=== PATIENT | female | born 1985 | race Caucasian/White ===

== ENCOUNTER → 2017-04-27 | Outpatient (REF) | payer OTHER ==
[~2017-04-27] MED LIST: BENA25TA4 PO; MOTR200T44 PO; PERCOCET PO
[2017-04-27 13:59] LABS: BASO # 0.1 K/mm3 (0.0-0.2); BASO % 0.5 % (0.0-1.0); EOS # 0.2 K/mm3 (0.0-0.50); EOS % 1.3 % (0.0-3.0); LARGE UNSTAINED CELL # 0.1 K/mm3 (0.0-0.4); LARGE UNSTAINED CELL % 1.2 % (0.0-4.0); LYMPH # 2.3 K/mm3 (1.5-4.5); LYMPH % 19.2 % (24.0-44.0); MEAN CORPUSCULAR HEMOGLOBIN 28.1 pg (27.0-33.0); MEAN CORPUSCULAR HGB CONC 32.6 g/dl (32.0-36.5); MONO # 0.7 K/mm3 (0.0-0.8); MONO % 6.3 % (0.0-5.0); NEUTROPHILS # 7.9 K/mm3 (1.8-7.7); NEUTROPHILS % 71.5 % (36.0-66.0); PLATELET COUNT, AUTOMATED 392 k/mm3 (150-450); WHITE BLOOD COUNT 11.1 K/mm3 (4.0-10.0)
[2017-04-27 14:07] LABS: ALBUMIN/GLOBULIN RATIO 1.18 (1.00-1.93); ALKALINE PHOSPHATASE 65 U/L (45-117); ALT/SGPT 23 U/L (12-78); ANION GAP 7 MEQ/L (8-16); AST/SGOT 15 U/L (15-37); BILIRUBIN,TOTAL 0.3 MG/DL (0.2-1.0); BLOOD UREA NITROGEN 9 MG/DL (7-18); CALCIUM LEVEL 9.7 MG/DL (8.5-10.1); CARBON DIOXIDE LEVEL 25 MEQ/L (21-32); CHLORIDE LEVEL 104 MEQ/L (98-107); CREATININE FOR GFR 0.62 MG/DL (0.55-1.02); GLOMERULAR FILTRATION RATE > 60.0 (>60); GLUCOSE, FASTING 89 MG/DL (70-105); POTASSIUM SERUM 4.4 MEQ/L (3.5-5.1); SODIUM LEVEL 136 MEQ/L (136-145); TOTAL PROTEIN 7.4 GM/DL (6.4-8.2); URIC ACID 5.2 MG/DL (2.6-6.0)
[2017-04-27 15:04] LABS: ERYTHROCYTE SEDIMENTATION RATE 9 mm/hr (0-20)
[2017-04-29 00:06] LABS: Lyme Disease IgG/IgM Antibodie <0.91 ISR (0.00-0.90); Lyme Disease IgM Ab Quantitati <0.80 index (0.00-0.79)
== END ==
LOC: M LABDRAW1 12:50
PROVIDERS: ATTEND Orthopaedic Surgery
DX: G56.01 Carpal tunnel syndrome, right upper limb (principal)

== ENCOUNTER 2018-04-01 10:38 | Day surgery (SDC) | payer OTHER ==
[~2018-04-01 10:38] MED LIST changes: -BENA25TA4 PO; +LIDOCAINE 2% MDV 20 ML VIAL As Ordered; -MOTR200T44 PO; -PERCOCET PO; +PROPOFOL 200 MG/20 ML VIAL As Ordered
[2018-04-01] MEDS: NS 1,000 ML IV (11:34)
[2018-04-01] MEDS ORDERED: PROPOFOL 200 MG/20 ML VIAL As Ordered ×4 (12:55→13:13)
== END 2018-04-01 13:59 | disposition home or self-care (01) ==
LOC: M OPP 10:38
DX: R19.7 Diarrhea, unspecified (principal); D12.0 Benign neoplasm of cecum; K64.8 Other hemorrhoids; K22.70 Barrett's esophagus without dysplasia; K21.0 Gastro-esophageal reflux disease with esophagitis; K29.70 Gastritis, unspecified, without bleeding; K29.80 Duodenitis without bleeding; R11.2 Nausea with vomiting, unspecified; M50.30 Other cervical disc degeneration, unspecified cervical region; F41.9 Anxiety disorder, unspecified; R51 Headache; E28.2 Polycystic ovarian syndrome; Z88.3 Allergy status to other anti-infective agents; Z91.048 Other nonmedicinal substance allergy status; Z88.5 Allergy status to narcotic agent; Z79.899 Other long term (current) drug therapy; Z80.0 Family history of malignant neoplasm of digestive organs; Z80.8 Family history of malignant neoplasm of other organs or systems
CPT/HCPCS: 45380

== ENCOUNTER 2018-06-14 12:14 | Day surgery (SDC) | payer OTHER ==
[~2018-06-14 12:14] MED LIST changes: +LIDOCAINE 2% INJ 100 MG/5 ML SDV (FOR ANES.) As Ordered; -LIDOCAINE 2% MDV 20 ML VIAL As Ordered; +fentaNYL 100 MCG/2 ML INJECTION (J3010) As Ordered
[2018-06-14] MEDS: NS 1,000 ML IV (12:30)
[2018-06-14] MEDS ORDERED: PROPOFOL 200 MG/20 ML VIAL As Ordered (13:24)
== END 2018-06-14 14:02 | disposition home or self-care (01) ==
LOC: M OPP 12:14
DX: K21.0 Gastro-esophageal reflux disease with esophagitis (principal); K29.70 Gastritis, unspecified, without bleeding; R12 Heartburn; R11.2 Nausea with vomiting, unspecified; K22.70 Barrett's esophagus without dysplasia; M54.2 Cervicalgia; M35.9 Systemic involvement of connective tissue, unspecified; F41.9 Anxiety disorder, unspecified; R51 Headache; E28.2 Polycystic ovarian syndrome; N80.9 Endometriosis, unspecified; Z89.421 Acquired absence of other right toe(s); Z88.3 Allergy status to other anti-infective agents; Z91.048 Other nonmedicinal substance allergy status; Z91.018 Allergy to other foods; Z79.84 Long term (current) use of oral hypoglycemic drugs; Z79.899 Other long term (current) drug therapy; Z80.0 Family history of malignant neoplasm of digestive organs; Z80.8 Family history of malignant neoplasm of other organs or systems
CPT/HCPCS: 43239

== ENCOUNTER → 2019-01-03 | Outpatient (REF) | payer OTHER ==
[~2019-01-03] MED LIST changes: +BENA25TA4 PO; +ETHY1TAB PO; +HYDR200T3 PO; -LIDOCAINE 2% INJ 100 MG/5 ML SDV (FOR ANES.) As Ordered; +MELA10TA4 PO; +METF10004 PO; +MOTR200T44 PO; +OMEP40CA2 PO; +PANT40TA3 PO; +PERCOCET PO; +PRED10TA2 PO; -PROPOFOL 200 MG/20 ML VIAL As Ordered; +RANI150T PO; +REST0.05 OU; +SERT-138 PO; +TOPI25TA10 PO; +TRAM50TA2 PO; +TYLE325T5 PO; +TYLE500T78 PO; -fentaNYL 100 MCG/2 ML INJECTION (J3010) As Ordered
== END ==
LOC: M LAB LCGH 11:11
DX: Z12.4 Encounter for screening for malignant neoplasm of cervix (principal)

== ENCOUNTER 2019-05-31 05:50 | Day surgery (SDC) | payer OTHER ==
[~2019-05-31] VITALS: Ht 167.6 cm; Wt 115.2 kg
[~2019-05-31 05:50] MED LIST changes: +MAXA10TA15 PO; +ZONI100C2 PO
[2019-05-31] MEDS ORDERED: LIDOCAINE 1% MDV 20ML VIAL SQ PRN (06:00)
[2019-05-31] MEDS ORDERED: LR 1,000 ML IV ONE (06:00)
[2019-05-31] MEDS ORDERED: dexameTHASONE 4 MG/ML 1ML VIAL (J1100) IV ONE (06:00)
[2019-05-31] MEDS ORDERED: IBUP80TA PO (06:37)
[2019-05-31 06:41] LABS: URINE PREG TEST NEGATIVE (NEGATIVE)
[2019-05-31] MEDS ORDERED: CIPRODEX OTIC SUSP 7.5ML As Ordered ONE (06:47)
[2019-05-31] MEDS ORDERED: PHENYLEPHRINE 0.5% NASAL SPRAY 15 ML As Ordered ONE (06:47)
[2019-05-31] MEDS ORDERED: SCOPOLAMINE 1MG TRANSDERMAL PATCH TOP ONE (07:00)
[2019-05-31] MEDS ORDERED: MIDAZOLAM INJ 2 MG/2 ML VIAL (J2250) As Ordered ONE (07:14)
[2019-05-31] MEDS ORDERED: fentaNYL 100 MCG/2 ML INJECTION (J3010) As Ordered ONE ×3 (07:14→08:22)
[2019-05-31] MEDS ORDERED: dexameTHASONE 4 MG/ML 1ML VIAL (J1100) As Ordered ONE (07:14)
[2019-05-31] MEDS ORDERED: LIDOCAINE 2% INJ 100 MG/5 ML SDV (FOR ANES.) As Ordered ONE (07:14)
[2019-05-31] MEDS ORDERED: PROPOFOL 200 MG/20 ML VIAL As Ordered ONE (07:14)
[2019-05-31] MEDS ORDERED: ONDANSETRON 4MG/2ML VIAL (J2405) As Ordered ONE (07:14)
[2019-05-31] MEDS ORDERED: SCOPOLAMINE 1MG TRANSDERMAL PATCH As Ordered ONE (07:15)
[2019-05-31] MEDS ORDERED: diphenhydrAMINE INJ 50MG/ML VIAL (J1200) As Ordered ONE (07:58)
[2019-05-31] MEDS ORDERED: oxyCODONE 5MG TAB As Ordered ONE (08:22)
[2019-05-31] MEDS: fentaNYL 100 MCG/2 ML INJECTION (J3010) IV PRN ×3 (08:25→08:35)
[2019-05-31] MEDS: oxyCODONE 5MG TAB PO PRN ×2 (08:25→09:00)
[2019-05-31] MEDS ORDERED: METOCLOPRAMIDE INJ 10MG/2ML VIAL (J2765) IV PRN (08:30)
[2019-05-31] MEDS ORDERED: ONDANSETRON 4MG/2ML VIAL (J2405) IV PRN (08:30)
[2019-05-31] MEDS ORDERED: LR 1,000 ML IV SCH ×2 (08:30)
[2019-05-31] MEDS ORDERED: IBUPROFEN 600 MG TAB As Ordered ONE (08:49)
[2019-05-31] MEDS ORDERED: IBUPROFEN 600 MG TAB PO ONE (09:00)
[2019-05-31 09:15] VITALS: BP 135/79
--- NOTE | 2019-05-31 14:39 | RO ---
DATE OF OPERATION: 05/31/2019 PREOPERATIVE DIAGNOSIS: Recurrent otitis media and adenoid hypertrophy. POSTOPERATIVE DIAGNOSIS: Recurrent otitis media and adenoid hypertrophy. PROCEDURE PERFORMED: Bilateral tympanostomy and adenoidectomy. SURGEON: Eliezer Mcclure MD PLANT PATHOLOGIST: ANESTHESIA: General. CLINICAL PREAMBLE: This 33-year-old woman presented to the office with history of recurrent otitis media. Nasal endoscopy revealed evidence of adenoid hypertrophy. Management options, including bilateral tympanostomy and adenoidectomy have been discussed. The patient understood and consented to the procedure. DESCRIPTION OF PROCEDURE: Operating room (OR) narration: Patient was identified in preoperative holding and brought to the operating room in stable condition. In supine position on the operating table, patient received general anesthesia followed by orotracheal intubation without incident. Patient was prepped and draped in the usual fashion for the procedure. The patient's head was turned to the left side to expose the right ear. Ear speculum was inserted and cerumen was debrided. The right tympanic membrane was visualized under binocular magnification under an operating microscope and was found to be intact and mildly retracted. Myringotomy incision was made over the anterior-inferior quadrant of tympanic membrane. The right middle ear cleft was then suctioned clear. A 7 mm straight shank tympanostomy tube was inserted. Ciprodex drops were instilled, and a cotton ball was used to occlude the ear canal. The same procedure was carried out to place the same type of tympanostomy tube to the left ear as well. The Yaya-Alexandro mouth gag was inserted and suspended. The red rubber catheter was inserted via the right naris to retract the soft palate. Using a mirror, the hypertrophic adenoid tissue was visualized. Using the Coblator wand set at 7 for Coblation and 3 for coagulation, the hypertrophic adenoid tissue was ablated. Hemostasis was achieved. At the end of the procedure, sponge and instrument counts were correct. No complication was encountered. Estimated blood loss was less than 10 mL. General anesthesia was reversed, and patient was extubated and brought to the recovery room in stable condition. edited: 06/08/2019 1000 tkf
== END 2019-05-31 09:46 | disposition home or self-care (01) ==
LOC: M SDC 05:50
PROVIDERS: ATTEND Otolaryngology
DX: H65.23 Chronic serous otitis media, bilateral (principal); J35.2 Hypertrophy of adenoids; F41.9 Anxiety disorder, unspecified; Z91.018 Allergy to other foods; Z79.84 Long term (current) use of oral hypoglycemic drugs; R51 Headache; E28.2 Polycystic ovarian syndrome; Z79.899 Other long term (current) drug therapy
CPT/HCPCS: 42831; 69436; 84703; J1100; J1200; J2250; J2405; J3010

== ENCOUNTER → 2020-08-28 | Outpatient (REF) | payer OTHER ==
[~2020-08-28] MED LIST changes: +BUSP15TA47 PO; +CETI10CA2 PO; +IBUP80TA PO; +METH8TAB4 PO; -OMEP40CA2 PO; +OMEP40CA97 PO; +PANT40TA29 PO; -PANT40TA3 PO; +PROP10TA56 PO; +SULF500T41 PO; +ZONI100C17 PO; -ZONI100C2 PO
== END ==
LOC: M LAB REF 09:51
PROVIDERS: ATTEND Internal Medicine Gastroenterology
DX: R19.7 Diarrhea, unspecified (principal)

== ENCOUNTER → 2020-08-28 | Outpatient (CLI) | payer OTHER | LOC: M LABSMTC 12:57 | PROVIDERS: ATTEND Anesthesiology | DX: Z01.812 Encounter for preprocedural laboratory examination (principal); Z20.828 Contact with and (suspected) exposure to other viral communicable diseases ==

== ENCOUNTER 2020-09-02 08:22 | Day surgery (SDC) | payer OTHER ==
[~2020-09-02] VITALS: Ht 167.6 cm; Wt 117.8 kg
[~2020-09-02 08:22] MED LIST changes: +NS 1,000 ML IV ONE
[2020-09-02] MEDS ORDERED: LIDOCAINE 2% 100MG/5ML SDV (FOR ANES.) As Ordered ONE (09:27)
[2020-09-02] MEDS ORDERED: propofoL 200 MG/20 ML VIAL As Ordered ONE ×2 (09:27→10:01)
[2020-09-02] MEDS ORDERED: fentaNYL 100 MCG/2 ML INJECTION (J3010) As Ordered ONE (09:28)
--- NOTE | 2020-09-02 10:01 | ROOR ---
Patient Name: Seb Clark Procedure Date: 09/02/2020 9:40 AM Date of : 1985 Age: 35 Room: [facility] Gender: Female Note Status: Finalized Procedure: Upper Endoscopy + Biopsies Indications: Heartburn, Exclusion of Pandya's esophagus Providers: David Uribe MD Referring MD: Liya Mccabe MD Requesting Provider: Medicines: Monitored Anesthesia Care Complications: No immediate complications. Procedure: Pre-Anesthesia Assessment: - The heart rate, respiratory rate, oxygen saturations, blood pressure, adequacy of pulmonary ventilation, and response to care were monitored throughout the procedure. The Endoscope was introduced through the mouth, and advanced to the second part of duodenum. The upper GI endoscopy was accomplished without difficulty. The patient tolerated the procedure well. Findings: The Z-line was regular and was found 40 cm from the incisors. Multiple biopsies were obtained with cold forceps for evaluation to rule out Pandya's Esophagus randomly at the gastroesophageal junction. No other significant abnormalities were identified in a careful examination of the stomach. Biopsies were taken with a cold forceps in the gastric antrum for Helicobacter pylori testing. The exam of the duodenum was otherwise normal. Biopsies for histology were taken with a cold forceps in the first portion of the duodenum for evaluation of celiac disease. The exam was otherwise without abnormality. Impression: - Z-line regular, 40 cm from the incisors. - The examination was otherwise normal. - Multiple biopsies were obtained at the gastroesophageal junction. - Biopsies were taken with a cold forceps for Helicobacter pylori testing. - Biopsies were taken with a cold forceps for evaluation of celiac disease. - The examination was otherwise normal. Recommendation: - Patient has a contact number available for emergencies. The signs and symptoms of potential delayed complications were discussed with the patient. Return to normal activities tomorrow. Written discharge instructions were provided to the patient. - High fiber diet. - Discharge patient to home. - Follow an antireflux regimen. - Continue present medications. - Await pathology results. - Telephone GI clinic for pathology results in 1 week. - Return to referring physician. - The findings and recommendations were discussed with the patient. Procedure Code(s): --- Professional --- 45436, Esophagogastroduodenoscopy, flexible, transoral; with biopsy, single or multiple Diagnosis Code(s): --- Professional --- R12, Heartburn CPT copyright 2019 [employer] [place] [employer]. All rights reserved. The codes documented in this report are preliminary and upon death surveys coder review may be revised to meet current compliance requirements. David Uribe MD David Uribe MD 09/02/2020 10:01:34 AM Electronically signed by David Uribe MD Number of Addenda: 0 Note Initiated On: 09/02/2020 9:40 AM Estimated Blood Loss: Estimated blood loss: none.
--- NOTE | 2020-09-02 10:18 | ROOR ---
Patient Name: Seb Clark Procedure Date: 09/02/2020 9:41 AM Date of : 1985 Age: 35 Room: [facility] Gender: Female Note Status: Finalized Procedure: Total Colonoscopy to Cecum + ileoscopy + Bx Indications: Clinically significant diarrhea of unexplained origin, Rectal bleeding Providers: David Uribe MD Referring MD: Liya Mccabe MD Requesting Provider: Medicines: Monitored Anesthesia Care Complications: No immediate complications. Procedure: Pre-Anesthesia Assessment: - The heart rate, respiratory rate, oxygen saturations, blood pressure, adequacy of pulmonary ventilation, and response to care were monitored throughout the procedure. The Colonoscope was introduced through the anus and advanced to the terminal ileum. The colonoscopy was performed without difficulty. The patient tolerated the procedure well. The quality of the bowel preparation was excellent. Findings: The perianal and digital rectal examinations were normal. Non-bleeding internal hemorrhoids were found during retroflexion. The hemorrhoids were small and Grade I (internal hemorrhoids that do not prolapse). No other significant abnormalities were identified in a careful examination of the remainder of the colon. Background biopsies were taken for histology with a cold forceps from the ascending colon, transverse colon, descending colon and rectosigmoid colon. These biopsy specimens were sent to Pathology. The terminal ileum appeared normal. The exam was otherwise without abnormality. Impression: - Non-bleeding internal hemorrhoids. - The examined portion of the ileum was normal. - The examination was otherwise normal. - Background biopsies were taken from the ascending colon, transverse colon, descending colon and rectosigmoid colon. - The exam was otherwise normal to the cecum. Recommendation: - Patient has a contact number available for emergencies. The signs and symptoms of potential delayed complications were discussed with the patient. Return to normal activities tomorrow. Written discharge instructions were provided to the patient. - High fiber diet. - Discharge patient to home. - Continue present medications. - Await pathology results. - Repeat colonoscopy at age 51 for screening purposes. - Return to referring physician. - The findings and recommendations were discussed with the patient. Procedure Code(s): --- Professional --- 71115, Colonoscopy, flexible; with biopsy, single or multiple Diagnosis Code(s): --- Professional --- K64.0, First degree hemorrhoids R19.7, Diarrhea, unspecified K62.5, Hemorrhage of anus and rectum CPT copyright 2019 [employer]. All rights reserved. The codes documented in this report are preliminary and upon net c developer review may be revised to meet current compliance requirements. David Uribe MD David Uribe MD 09/02/2020 10:17:49 AM Electronically signed by David Uribe MD Number of Addenda: 0 Note Initiated On: 09/02/2020 9:41 AM Estimated Blood Loss: Estimated blood loss: none.
[2020-09-02 10:44] VITALS: BP 136/76
== END 2020-09-02 10:48 | disposition home or self-care (01) ==
LOC: M OPP 08:22
PROVIDERS: ATTEND Internal Medicine Gastroenterology
DX: K62.5 Hemorrhage of anus and rectum (principal); K64.0 First degree hemorrhoids; R19.7 Diarrhea, unspecified; R12 Heartburn; K21.9 Gastro-esophageal reflux disease without esophagitis; E28.2 Polycystic ovarian syndrome; Z80.0 Family history of malignant neoplasm of digestive organs; M32.9 Systemic lupus erythematosus, unspecified; Z79.84 Long term (current) use of oral hypoglycemic drugs; Z79.899 Other long term (current) drug therapy; Z88.4 Allergy status to anesthetic agent; Z91.018 Allergy to other foods; Z91.048 Other nonmedicinal substance allergy status
CPT/HCPCS: 43239; 45380; 88305; J3010

== ENCOUNTER 2021-11-09 18:52 | Emergency (ER) | payer OTHER ==
[~2021-11-09] VITALS: Ht 167.6 cm; Wt 122.7 kg
[~2021-11-09 18:52] MED LIST changes: -NS 1,000 ML IV ONE; +OMEP40CA4 PO; -OMEP40CA97 PO
[2021-11-09] MEDS ORDERED: KETOROLAC 60MG 2ML VIAL IM ONE (19:55)
[2021-11-09] MEDS ORDERED: MORPHINE 4 MG/ML 1ML VIAL/SYRINGE (J2270) IV ONE ×2 (21:15→21:50)
[2021-11-09 21:32] LABS: BASO # 0.1 10^3/uL (0.0-0.2); BASO % 0.6 % (0.0-1.0); EOS # 0.1 10^3/uL (0.0-0.5); EOS % 1.2 % (0.0-3.0); HEMATOCRIT 41.8 % (36.0-47.0); HEMOGLOBIN 13.7 g/dl (12.0-15.5); LYMPH # 2.1 10^3/uL (1.5-5.0); LYMPH % 17.9 % (24.0-44.0); MEAN CORPUSCULAR HEMOGLOBIN 29.1 pg (27.0-33.0); MEAN CORPUSCULAR HGB CONC 32.8 g/dl (32.0-36.5); MEAN CORPUSCULAR VOLUME 88.7 fl (80.0-96.0); MONO % 8.4 % (2.0-8.0); NEUTROPHILS # 8.5 10^3/uL (1.5-8.5); NEUTROPHILS % 71.5 % (36.0-66.0); PLATELET COUNT, AUTOMATED 404 10^3/uL (150-450); RED BLOOD COUNT 4.71 10^6/uL (4.00-5.40); WHITE BLOOD COUNT 11.9 10^3/uL (4.0-10.0)
[2021-11-09 21:44] LABS: INR 0.9; PROTHROMBIN TIME 12.5 SECONDS (12.7-14.5)
[2021-11-09] MEDS ORDERED: NORCO, ANEXSIA 5/325MG TABLET (HYDROcodone/ACETAMINOPHEN) PO ONE (21:50)
[2021-11-09 21:54] LABS: BLOOD UREA NITROGEN 14 MG/DL (7-18); CALCIUM LEVEL 8.9 MG/DL (8.5-10.1); CARBON DIOXIDE LEVEL 23 MEQ/L (21-32); CHLORIDE LEVEL 109 MEQ/L (98-107); CREATININE FOR GFR 0.66 MG/DL (0.55-1.30); GLOMERULAR FILTRATION RATE > 60.0 (>60); GLUCOSE, FASTING 99 MG/DL (70-100); POTASSIUM SERUM 4.1 MEQ/L (3.5-5.1); SODIUM LEVEL 142 MEQ/L (136-145)
[2021-11-09 22:14] LABS: RSV AMPLIFICATION NEGATIVE (NEGATIVE)
[2021-11-09] MEDS ORDERED: HYDR-4571 PO (22:40)
[2021-11-09 22:53] VITALS: BP 160/91
== END 2021-11-09 22:58 | disposition home or self-care (01) ==
LOC: M ED 18:52 → EDBD 18:52 → M ED 22:58
DX: S82.841A Displaced bimalleolar fracture of right lower leg, initial encounter for closed fracture (principal); W00.0XXA Fall on same level due to ice and snow, initial encounter; M32.9 Systemic lupus erythematosus, unspecified; Z91.018 Allergy to other foods; Z91.048 Other nonmedicinal substance allergy status; Y92.009 Unspecified place in unspecified non-institutional (private) residence as the place of occurrence of the external cause; Y93.9 Activity, unspecified; Y99.9 Unspecified external cause status
CPT/HCPCS: 73590; 73610; 73620; 73700; 80048; 84702; 85025; 85610; 87631; 96372; 96374; 99284; J1885; J2270

== ENCOUNTER → 2021-11-11 | Outpatient (CLI) | payer OTHER ==
[~2021-11-11] MED LIST changes: +HYDR-4571 PO
== END ==
LOC: M SOG 11:41
PROVIDERS: ATTEND Orthopaedic Surgery
DX: S82.841A Displaced bimalleolar fracture of right lower leg, initial encounter for closed fracture (principal); X58.XXXA Exposure to other specified factors, initial encounter; Y92.89 Other specified places as the place of occurrence of the external cause; Y93.9 Activity, unspecified; Y99.9 Unspecified external cause status

== ENCOUNTER → 2021-11-12 | Outpatient (CLI) | payer OTHER | LOC: M LABSMTC 09:30 | PROVIDERS: ATTEND Anesthesiology | DX: Z01.812 Encounter for preprocedural laboratory examination (principal); Z20.822 Contact with and (suspected) exposure to COVID-19 ==

== ENCOUNTER → 2021-11-14 | Day surgery (SDC) | payer OTHER ==
[~2021-11-14] VITALS: Ht 167.6 cm; Wt 122.1 kg
[~2021-11-14] MED LIST changes: +ACET1TAB55 PO; +ACETAMINOPHEN 1000MG 100ML IV BTL (OFIRMEV) (J0131 PER 10MG) As Ordered ONE; +ACETAMINOPHEN TAB 650MG DOSE (2X325MG) PO SCH; +BUPIVACAINE HCL 0.25% 30ML VIAL As Ordered ONE; +ECOT81TA5 PO; +EPINEPHrine INJ 1 MG/ML 1ML AMP XX ONE; +HYDR-3713 PO; +LIDOCAINE 1% MDV 20ML VIAL XX ONE; +LIDOCAINE 2% 100MG/5ML SDV (FOR ANES.) As Ordered ONE; +LIDOCAINE W/EPINEPHRINE 1% 20ML VIAL As Ordered ONE; +LR 1,000 ML IV ONE; +LR 1,000 ML IV SCH; +METOCLOPRAMIDE INJ 10MG/2ML VIAL (J2765 PER 1) IV PRN; +MIDAZOLAM INJ 2MG/2ML VIAL (J2250 PER 1MG) As Ordered ONE; +MIDAZOLAM INJ 2MG/2ML VIAL (J2250 PER 1MG) IV PRN; +MORPHINE 4 MG/ML 1ML VIAL/SYRINGE (J2270) IV PRN; +ONDANSETRON 4MG/2ML VIAL As Ordered ONE; +ONDANSETRON 4MG/2ML VIAL IV PRN; +PERCOCET 5MG/325MG TAB PO PRN; +ROCURONIUM BROMIDE 50 MG/5 ML VIAL As Ordered ONE; +ROPIvacaine 0.5% 30ML INJECTION (J2795 PER 1MG) XX ONE; +SUGAMMADEX SODIUM 500 MG/5 ML VIAL (BRIDION) As Ordered ONE; +ceFAZolin SOD 2 GM in IV 1 EA IV ONE; +dexameTHASONE 10MG/1ML VIAL PRES.FREE (J1100 PER 1MG) XX ONE; +dexameTHASONE 4 MG/ML 1ML VIAL (J1100 PER 1MG) As Ordered ONE; +fentaNYL 100 MCG/2 ML INJECTION As Ordered ONE; +fentaNYL 100 MCG/2 ML INJECTION IV PRN; +fentaNYL 250 MCG/5 ML INJECTION As Ordered ONE; +oxyCODONE 5MG TAB PO PRN; +propofoL 200 MG/20 ML VIAL As Ordered ONE
[2021-11-14] MEDS: fentaNYL 100 MCG/2 ML INJECTION IV PRN ×2 (12:37→12:38)
[2021-11-14 16:55] VITALS: BP 148/85
== END | disposition home or self-care (01) ==
LOC: M SDC 10:58
PROVIDERS: ATTEND Orthopaedic Surgery
DX: S82.841A Displaced bimalleolar fracture of right lower leg, initial encounter for closed fracture (principal); W00.0XXA Fall on same level due to ice and snow, initial encounter; Y92.89 Other specified places as the place of occurrence of the external cause; Y93.9 Activity, unspecified; Y99.9 Unspecified external cause status; I49.8 Other specified cardiac arrhythmias; M32.9 Systemic lupus erythematosus, unspecified; F41.9 Anxiety disorder, unspecified; F32.9 Major depressive disorder, single episode, unspecified; E66.01 Morbid (severe) obesity due to excess calories; Z79.899 Other long term (current) drug therapy; Z91.018 Allergy to other foods; Z91.040 Latex allergy status
CPT/HCPCS: 27814; 76000; 81025; C1713; J0131; J0171; J0690; J1100; J2250; J2405; J2795; J3010

== ENCOUNTER → 2021-11-27 | Outpatient (CLI) | payer OTHER ==
[~2021-11-27] MED LIST changes: -ACETAMINOPHEN 1000MG 100ML IV BTL (OFIRMEV) (J0131 PER 10MG) As Ordered ONE; -ACETAMINOPHEN TAB 650MG DOSE (2X325MG) PO SCH; -BUPIVACAINE HCL 0.25% 30ML VIAL As Ordered ONE; -EPINEPHrine INJ 1 MG/ML 1ML AMP XX ONE; -LIDOCAINE 1% MDV 20ML VIAL XX ONE; -LIDOCAINE 2% 100MG/5ML SDV (FOR ANES.) As Ordered ONE; -LIDOCAINE W/EPINEPHRINE 1% 20ML VIAL As Ordered ONE; -LR 1,000 ML IV ONE; -LR 1,000 ML IV SCH; -METOCLOPRAMIDE INJ 10MG/2ML VIAL (J2765 PER 1) IV PRN; -MIDAZOLAM INJ 2MG/2ML VIAL (J2250 PER 1MG) As Ordered ONE; -MIDAZOLAM INJ 2MG/2ML VIAL (J2250 PER 1MG) IV PRN; -MORPHINE 4 MG/ML 1ML VIAL/SYRINGE (J2270) IV PRN; -ONDANSETRON 4MG/2ML VIAL As Ordered ONE; -ONDANSETRON 4MG/2ML VIAL IV PRN; -PERCOCET 5MG/325MG TAB PO PRN; -ROCURONIUM BROMIDE 50 MG/5 ML VIAL As Ordered ONE; -ROPIvacaine 0.5% 30ML INJECTION (J2795 PER 1MG) XX ONE; -SUGAMMADEX SODIUM 500 MG/5 ML VIAL (BRIDION) As Ordered ONE; -ceFAZolin SOD 2 GM in IV 1 EA IV ONE; -dexameTHASONE 10MG/1ML VIAL PRES.FREE (J1100 PER 1MG) XX ONE; -dexameTHASONE 4 MG/ML 1ML VIAL (J1100 PER 1MG) As Ordered ONE; -fentaNYL 100 MCG/2 ML INJECTION As Ordered ONE; -fentaNYL 100 MCG/2 ML INJECTION IV PRN; -fentaNYL 250 MCG/5 ML INJECTION As Ordered ONE; -oxyCODONE 5MG TAB PO PRN; -propofoL 200 MG/20 ML VIAL As Ordered ONE
== END ==
LOC: M SOG 11:19
PROVIDERS: ATTEND Orthopaedic Surgery
DX: Z48.89 Encounter for other specified surgical aftercare (principal)

== ENCOUNTER → 2021-12-11 | Outpatient (CLI) | payer OTHER | LOC: M SOG 08:14 | PROVIDERS: ATTEND Orthopaedic Surgery | DX: S82.841D Displaced bimalleolar fracture of right lower leg, subsequent encounter for closed fracture with routine healing (principal); S82.841A Displaced bimalleolar fracture of right lower leg, initial encounter for closed fracture; W18.30XD Fall on same level, unspecified, subsequent encounter ==

== ENCOUNTER → 2021-12-25 | Outpatient (CLI) | payer OTHER | LOC: M SOG 08:45 | PROVIDERS: ATTEND Orthopaedic Surgery | DX: S82.841D Displaced bimalleolar fracture of right lower leg, subsequent encounter for closed fracture with routine healing (principal) ==

== ENCOUNTER → 2024-08-04 | Outpatient (CLI) | payer OTHER ==
[~2024-08-04] MED LIST changes: -HYDR200T3 PO; +HYDR200T46 PO; -MAXA10TA15 PO; +RIZA10TA66 PO; -ZONI100C17 PO; +ZONI100C67 PO
== END ==
LOC: M SOG 08:16
PROVIDERS: ATTEND Orthopaedic Surgery
DX: Z48.89 Encounter for other specified surgical aftercare (principal); S82.841D Displaced bimalleolar fracture of right lower leg, subsequent encounter for closed fracture with routine healing